=== PATIENT | male | born 1945 | race Caucasian/White ===

== ENCOUNTER 2017-01-05 21:32 | Inpatient (IN) | payer OTHER, MEDICARE ==
[~2017-01-05] VITALS: Ht 185.4 cm; Wt 74.3 kg
[~2017-01-05 21:32] MED LIST changes: -COUMADIN3 MG PO; -LOVENOX80 MG/0.8 SC
[2017-01-05 22:09] LABS: BASE EXCESS 9.4 mEq/L (-3 to +3); BICARBONATE 35.2 mEq/L (22-26); CARBOXY HGB 2.2 % (0-5); COMMENTS - BLOOD GASES A+C+; METHEMOGLOBIN 0.8 % (0-1.5); O2 FLOW 4 L/MIN; PCO2 53 mm Hg (35-45); PO2 72 mm Hg (80-100); SITE RR; pH 7.43 (7.35-7.45)
[2017-01-05 22:10] LABS: DEVICE NC; TOTAL RESP RATE 24 resp/min
[2017-01-05 22:10] LABS: EOSINOPHIL (%) 0.3 % (0-5); HEMATOCRIT 40.5 % (38.0-50.0); IMMATURE GRANULOCYTE (%) 0.5 % (0.0-0.7); IMMATURE GRANULOCYTE COUNT 0.1 K/uL; INSTRUMENT ABS NEUTROPHIL CT 9.6 K/uL; LYMPHOCYTE COUNT 0.2 K/uL (1.0-2.8); MCH 28.8 PG (29.0-34.0); MCHC 31.6 G/DL (30.0-36.0); MEAN PLAT.VOLUME 9.4 uM^3 (9.0-12.4); MONOCYTE (%) 6.4 % (3-12); MONOCYTE COUNT 0.7 K/uL (0-0.8); NEUTROPHIL (%) 90.9 % (45-76); NEUTROPHIL COUNT 9.6 K/uL (1.8-6.4); PLATELET COUNT 366 K/uL (156-360); RBC DIS.WIDTH-CV 15.6 % (11.8-14.6); RBC DIS.WIDTH-SD 52.1 % (39-53); RED BLOOD COUNT 4.45 M/uL (4.00-5.50); WHITE BLOOD COUNT 10.6 K/uL (4.1-10.2)
[2017-01-05 22:22] LABS: INTER. NORMALIZED RATIO 1.7; PROTHROMBIN TIME 19.5 SEC (10.2-12.9)
[2017-01-05 22:23] LABS: CHLORIDE 94 mEq/L (99-109); POTASSIUM 4.9 mEq/L (3.7-5.4); SODIUM 135 mEq/L (136-147)
[2017-01-05 22:24] LABS: MAGNESIUM 1.7 mg/dL (1.3-2.7)
[2017-01-05 22:25] LABS: GLUCOSE 125 mg/dL (70-99); PTT 43.3 SEC (25-37)
[2017-01-05 22:26] LABS: ANION GAP 9 MEQ/L (2-14)
[2017-01-05 22:29] LABS: GFR ESTIMATE (CALCULATED) > 59 mL/min/; UREA NITROGEN (BUN) 14 mg/dL (9-23)
[2017-01-05 22:35] LABS: TROP-I INTERPRETATION NEGATIVE; TROPONIN-I < 0.01 ng/mL (0.0-0.30)
[2017-01-05 22:37] LABS: DIGOXIN 0.4 ng/mL (0.8-2.0)
[2017-01-05] MEDS ORDERED: COUMADIN3 MG PO (23:47)
[2017-01-05] MEDS ORDERED: LOVENOX80 MG/0.8 SC (23:48)
[2017-01-06 02:24] VITALS: BP 116/61
[2017-01-06 04:56] LABS: INTER. NORMALIZED RATIO 1.9; PROTHROMBIN TIME 21.3 SEC (10.2-12.9)
[2017-01-06 05:23] LABS: ANION GAP 5 MEQ/L (2-14); CHLORIDE 98 MEQ/L (99-109); POTASSIUM 4.8 MEQ/L (3.7-5.4); SAMPLE HEMOLYSIS CHECK 0; SAMPLE ICTERIC CHECK 0; SAMPLE LIPEMIA CHECK 0; SODIUM 137 MEQ/L (136-147); TOTAL BILIRUBIN 0.7 MG/DL (0.0-1.0)
[2017-01-06 05:29] LABS: ALKALINE PHOSPHATASE 81 IU/L (3-129); GFR ESTIMATE (CALCULATED) > 59 mL/min/; GLUCOSE 103 mg/dL (70-99); UREA NITROGEN (BUN) 14 mg/dL (9-23)
[2017-01-06 07:45] VITALS: BP 99/66
[2017-01-06 12:03] VITALS: BP 85/50
[2017-01-06 15:47] VITALS: BP 90/53
[2017-01-06 19:45] VITALS: BP 102/68
[2017-01-06 23:21] VITALS: BP 98/62
[2017-01-07 03:21] VITALS: BP 100/52
[2017-01-07 05:16] LABS: HEMATOCRIT 34.5 % (38.0-50.0); MCH 27.9 PG (29.0-34.0); MCHC 30.7 G/DL (30.0-36.0); MCV 90.8 FL (86-99); MEAN PLAT.VOLUME 9.5 uM^3 (9.0-12.4); PLATELET COUNT 304 K/uL (156-360); RBC DIS.WIDTH-CV 15.7 % (11.8-14.6); RBC DIS.WIDTH-SD 52.3 % (39-53); WHITE BLOOD COUNT 4.7 K/uL (4.1-10.2)
[2017-01-07 05:44] LABS: INTER. NORMALIZED RATIO 1.8; PROTHROMBIN TIME 20.4 SEC (10.2-12.9)
[2017-01-07 06:45] LABS: ANION GAP 7 MEQ/L (2-14); CHLORIDE 97 MEQ/L (99-109); GFR ESTIMATE (CALCULATED) > 59 mL/min/; GLUCOSE 79 mg/dL (70-99); POTASSIUM 4.2 MEQ/L (3.7-5.4); SAMPLE HEMOLYSIS CHECK 0; SAMPLE ICTERIC CHECK 0; SAMPLE LIPEMIA CHECK 0; SODIUM 140 MEQ/L (136-147); UREA NITROGEN (BUN) 14 mg/dL (9-23)
[2017-01-07 08:16] VITALS: BP 78/50
[2017-01-07 12:12] VITALS: BP 86/59
[2017-01-07 16:00] VITALS: BP 92/60
[2017-01-07 19:20] VITALS: BP 102/58
[2017-01-08] VITALS (7 sets, daily range): BP systolic 91–111; BP diastolic 56–72
[2017-01-08 05:33] LABS: INTER. NORMALIZED RATIO 1.8; PROTHROMBIN TIME 20.6 SEC (10.2-12.9)
[2017-01-09 03:51] VITALS: BP 119/67
[2017-01-09 04:55] LABS: INTER. NORMALIZED RATIO 2.2; PROTHROMBIN TIME 24.7 SEC (10.2-12.9)
[2017-01-09 07:05] VITALS: BP 96/60
[2017-01-09 10:49] LABS: ALKALINE PHOSPHATASE 69 IU/L (3-129); ANION GAP 4 MEQ/L (2-14); CHLORIDE 96 MEQ/L (99-109); GFR ESTIMATE (CALCULATED) > 59 mL/min/; POTASSIUM 4.4 MEQ/L (3.7-5.4); SAMPLE HEMOLYSIS CHECK 0; SAMPLE ICTERIC CHECK 0; SAMPLE LIPEMIA CHECK 0; SODIUM 138 MEQ/L (136-147); UREA NITROGEN (BUN) 9 mg/dL (9-23)
[2017-01-09 10:50] LABS: GLUCOSE 147 mg/dL (70-99); TOTAL BILIRUBIN 0.4 MG/DL (0.0-1.0)
[2017-01-09 12:01] VITALS: BP 96/64
[2017-01-09 15:38] VITALS: BP 95/63
[2017-01-09 20:32] VITALS: BP 107/75
[2017-01-09 23:00] VITALS: BP 103/62
[2017-01-10 02:10] VITALS: BP 105/60
[2017-01-10 05:40] LABS: INTER. NORMALIZED RATIO 2.7; PROTHROMBIN TIME 31.3 SEC (10.2-12.9)
[2017-01-10 09:00] VITALS: BP 90/55
[2017-01-10 12:26] VITALS: BP 112/76
[2017-01-10 16:05] VITALS: BP 113/81
[2017-01-11 06:15] LABS: INTER. NORMALIZED RATIO 3.2; PROTHROMBIN TIME 36.8 SEC (10.2-12.9)
[2017-01-11 08:33] VITALS: BP 102/74
[2017-01-11 09:00] LABS: HEMATOCRIT 37.3 % (38.0-50.0); MCH 27.9 PG (29.0-34.0); MCHC 29.8 G/DL (30.0-36.0); MCV 93.7 FL (86-99); MEAN PLAT.VOLUME 9.5 uM^3 (9.0-12.4); PLATELET COUNT 322 K/uL (156-360); RBC DIS.WIDTH-CV 14.8 % (11.8-14.6); RBC DIS.WIDTH-SD 51.6 % (39-53); RED BLOOD COUNT 3.98 M/uL (4.00-5.50); WHITE BLOOD COUNT 4.6 K/uL (4.1-10.2)
[2017-01-11 09:40] LABS: ALKALINE PHOSPHATASE 68 IU/L (3-129); ANION GAP ND MEQ/L (2-14); CHLORIDE 96 MEQ/L (99-109); GFR ESTIMATE (CALCULATED) > 59 mL/min/; POTASSIUM 4.6 MEQ/L (3.7-5.4); SAMPLE HEMOLYSIS CHECK 0; SAMPLE ICTERIC CHECK 0; SAMPLE LIPEMIA CHECK 0; SODIUM 142 MEQ/L (136-147); TOTAL BILIRUBIN 0.4 MG/DL (0.0-1.0); UREA NITROGEN (BUN) 8 mg/dL (9-23)
[2017-01-11 09:49] LABS: CARBON DIOXIDE (BICARBONATE) > 40.0 MEQ/L (20-31); GLUCOSE 79 mg/dL (70-99)
[2017-01-11 11:51] VITALS: BP 100/88
[2017-01-11 17:38] VITALS: BP 109/76
[2017-01-11 21:15] VITALS: BP 127/83
[2017-01-11 23:05] VITALS: BP 119/83
[2017-01-12 03:00] VITALS: BP 135/78
[2017-01-12 05:08] LABS: INTER. NORMALIZED RATIO 4.5; PROTHROMBIN TIME 51.4 SEC (10.2-12.9)
[2017-01-12 07:22] VITALS: BP 102/64
[2017-01-12 07:38] VITALS: BP 98/68
[2017-01-12 11:32] VITALS: BP 110/65
[2017-01-12 17:59] VITALS: BP 100/60
[2017-01-12 19:50] VITALS: BP 103/56
[2017-01-13 01:19] VITALS: BP 98/61
[2017-01-13 06:14] LABS: PROTHROMBIN TIME 45.9 SEC (10.2-12.9)
[2017-01-13 07:52] VITALS: BP 102/64
[2017-01-13 10:48] VITALS: BP 98/58
[2017-01-13 17:47] VITALS: BP 110/69
[2017-01-13 19:37] VITALS: BP 100/60
[2017-01-14 06:34] LABS: INTER. NORMALIZED RATIO 3.2; PROTHROMBIN TIME 36.7 SEC (10.2-12.9)
[2017-01-14] MEDS ORDERED: DIGOXIN250 MCG PO (07:36)
[2017-01-14] MEDS ORDERED: LEVOFLOXACIN750 MG PO (07:36)
[2017-01-14 08:08] VITALS: BP 100/64
== END 2017-01-14 12:33 | disposition home health service (06) | DRG 179 ==
LOC: EME 21:32 → 4EAST 01-06 00:34 → EDOF 01-06 00:34 → ENRESERV 01-06 00:59 → 4EAST 01-06 02:03
PROVIDERS: Emergency Medicine; Internal Medicine
DX: J15.1 Pneumonia due to Pseudomonas (principal); J62.8 Pneumoconiosis due to other dust containing silica; I27.20 Pulmonary hypertension, unspecified; I27.81 Cor pulmonale (chronic); I48.2 Chronic atrial fibrillation; I50.810 Right heart failure, unspecified; J43.9 Emphysema, unspecified; I95.9 Hypotension, unspecified; I45.9 Conduction disorder, unspecified; J47.9 Bronchiectasis, uncomplicated; I45.4 Nonspecific intraventricular block; E03.9 Hypothyroidism, unspecified; N40.0 Benign prostatic hyperplasia without lower urinary tract symptoms; R09.02 Hypoxemia; M79.89 Other specified soft tissue disorders; G47.00 Insomnia, unspecified; R41.0 Disorientation, unspecified; R60.0 Localized edema; Z79.01 Long term (current) use of anticoagulants; Z82.3 Family history of stroke; Z82.49 Family history of ischemic heart disease and other diseases of the circulatory system; Z83.3 Family history of diabetes mellitus; Z87.01 Personal history of pneumonia (recurrent)
CPT/HCPCS: 36600; 71010; 71275; 80048; 80053; 80162; 82803; 83605; 83735; 83880; 84443; 84484; 85025; 85027; 85610; 85730; 87040; 87070; 87116; 87205; 87206; 88108; 88305; 90686; 93005; 94640; 94640 76; 94667; 94668; 94799; 99202; 99281; 99285; J0456; J0461; J0692; J0696; J1160; J1650; J1940; J2175; J2250; J2543; J2550; J3010; J3370; J7030; J7050

== ENCOUNTER → 2017-01-05 | Outpatient (CLI) | payer OTHER, MEDICARE ==
[~2017-01-05] VITALS: Ht 182.9 cm; Wt 74.4 kg
[~2017-01-05] MED LIST: ADVAIR 100/501 DISK IH; ADVAIR 250/501 DISK IH; ADVAIR 500/501 DISK IH; ASPIR-LOW81 MG PO; AUGMENTIN875 MG PO; CARDIZEM CD,CA240 M1 PO; CARDIZEM120 MG PO; COUMADIN2 MG PO; COUMADIN3 MG PO; DIGOXIN125 MCG PO; FISH OIL CONC1 EACH PO; FLOMAX0.4 MG PO; FLONASE16 G1 BOTH NARES; FLUTICASONE PRO16 GM BOTH NARES; LANOXIN,DIGIT0.25 MG PO; LANOXIN250 MCG PO; LEVOFLOXACIN750 MG PO; LEVOTHYROXINE100 MCG PO; LOVENOX80 MG/0.8 SC; MUCINEX D ER T1 EACH PO; MUCINEX D1 TABLET PO; OMEGA-31000 M1 PO; ONE DAILY FOR1 EACH PO; PRADAXA150 MG PO; PREDNISONE10 MG PO; PREDNISONE20 MG PO; PROAIR HFA8.5 GM IH; PROVENTIL HFA6.7 GM IH; PROVENTIL17 GM IH; Pradaxa PO; Proventil,Ventolin H IH; SPIRIVA1 INHALATI IH; TAZTIA XT180 M1 PO
[2017-01-05 14:21] LABS: INTER. NORMALIZED RATIO 1.7
[2017-01-05 14:24] LABS: PTT 56.7 SEC (25-37)
[2017-01-05 14:28] LABS: PROTHROMBIN TIME 19.1 SEC (10.2-12.9)
[2017-01-05 14:36] LABS: HEMATOCRIT 40.2 % (38.0-50.0); MCH 28.4 PG (29.0-34.0); MCHC 31.3 G/DL (30.0-36.0); MCV 90.5 FL (86-99); MEAN PLAT.VOLUME 9.3 uM^3 (9.0-12.4); PLATELET COUNT 367 K/uL (156-360); RBC DIS.WIDTH-CV 15.5 % (11.8-14.6); RBC DIS.WIDTH-SD 51.7 % (39-53); RED BLOOD COUNT 4.44 M/uL (4.00-5.50); WHITE BLOOD COUNT 4.8 K/uL (4.1-10.2)
== END | disposition home or self-care (01) ==
LOC: AMB 13:47
PROVIDERS: Internal Medicine Pulmonary Disease
DX: J18.9 Pneumonia, unspecified organism (principal); I48.2 Chronic atrial fibrillation; J44.9 Chronic obstructive pulmonary disease, unspecified; J62.8 Pneumoconiosis due to other dust containing silica; J84.10 Pulmonary fibrosis, unspecified; I27.81 Cor pulmonale (chronic); E03.9 Hypothyroidism, unspecified
CPT/HCPCS: 85027; 85610; 85730; 87070; 87116; 87205; 87206; 88108; 88305; 94640; J0461; J2175; J2250; J2550; J3010

== ENCOUNTER 2017-01-22 21:39 | Emergency (ER) | payer OTHER, MEDICARE ==
[~2017-01-22] VITALS: Ht 185.4 cm; Wt 165.0 kg
[~2017-01-22 21:39] MED LIST changes: +COUMADIN3 MG PO; +DIGOXIN250 MCG PO; +LOVENOX80 MG/0.8 SC
[2017-01-22] MEDS ORDERED: PREDNISONE20 MG PO (22:11)
[2017-01-22 22:34] LABS: EOSINOPHIL (%) 4.9 % (0-5); EOSINOPHIL COUNT 0.3 K/uL (0-0.3); HEMATOCRIT 33.9 % (38.0-50.0); IMMATURE GRANULOCYTE (%) 0.5 % (0.0-0.7); INSTRUMENT ABS NEUTROPHIL CT 4.3 K/uL; LYMPHOCYTE COUNT 0.3 K/uL (1.0-2.8); MCH 28.8 PG (29.0-34.0); MCHC 31.6 G/DL (30.0-36.0); MCV 91.1 FL (86-99); MEAN PLAT.VOLUME 10.4 uM^3 (9.0-12.4); MONOCYTE (%) 19.4 % (3-12); MONOCYTE COUNT 1.2 K/uL (0-0.8); NEUTROPHIL (%) 70.3 % (45-76); NEUTROPHIL COUNT 4.3 K/uL (1.8-6.4); PLATELET COUNT 253 K/uL (156-360); RBC DIS.WIDTH-CV 15.3 % (11.8-14.6); RBC DIS.WIDTH-SD 51.5 % (39-53); RED BLOOD COUNT 3.72 M/uL (4.00-5.50); WHITE BLOOD COUNT 6.1 K/uL (4.1-10.2)
[2017-01-22 22:41] LABS: CHLORIDE 93 mEq/L (99-109); POTASSIUM 4.4 mEq/L (3.7-5.4); SODIUM 138 mEq/L (136-147)
[2017-01-22 22:43] LABS: GLUCOSE 92 mg/dL (70-99)
[2017-01-22 22:45] LABS: ANION GAP 7 MEQ/L (2-14)
[2017-01-22 22:47] LABS: GFR ESTIMATE (CALCULATED) > 59 mL/min/ (58.99-99999)
[2017-01-22 22:48] LABS: UREA NITROGEN (BUN) 15 mg/dL (9-23)
[2017-01-22 23:22] VITALS: BP 118/79
== END 2017-01-22 23:23 | disposition home or self-care (01) ==
LOC: EME 21:39
PROVIDERS: Emergency Medicine
DX: J44.1 Chronic obstructive pulmonary disease with (acute) exacerbation (principal); D64.9 Anemia, unspecified; Z87.442 Personal history of urinary calculi; Z87.01 Personal history of pneumonia (recurrent); Z99.81 Dependence on supplemental oxygen
CPT/HCPCS: 71020; 80048; 85025; 93005; 94640; 99281; 99285; J7512

== ENCOUNTER 2017-07-08 02:42 | Inpatient (IN) | payer OTHER, MEDICARE ==
[~2017-07-08] VITALS: Ht 175.3 cm; Wt 80.5 kg
[2017-07-08 03:00] LABS: HEMATOCRIT 37.7 % (38.0-50.0); MCH 29.4 PG (29.0-34.0); MCHC 31.8 G/DL (30.0-36.0); MCV 92.4 FL (86-99); PLATELET COUNT 319 K/uL (156-360); RBC DIS.WIDTH-CV 14.6 % (11.8-14.6); RBC DIS.WIDTH-SD 49.5 % (39-53); RED BLOOD COUNT 4.08 M/uL (4.00-5.50)
[2017-07-08 03:10] LABS: CHLORIDE 99 mEq/L (99-109); POTASSIUM 4.7 mEq/L (3.7-5.4); SODIUM 139 mEq/L (136-147)
[2017-07-08 03:12] LABS: GLUCOSE 121 mg/dL (70-99)
[2017-07-08 03:16] LABS: CREATININE 0.9 mg/dL (0.6-1.3); GFR ESTIMATE (CALCULATED) > 59 mL/min/ (58.99-99999)
[2017-07-08 03:17] LABS: UREA NITROGEN (BUN) 18 mg/dL (9-23)
[2017-07-08 05:09] LABS: TROP-I INTERPRETATION NEGATIVE; TROPONIN-I < 0.01 ng/mL (0.0-0.30)
[2017-07-08 05:10] LABS: APPEARANCE CLEAR ((CLEAR)); BILIRUBIN NEGATIVE; BLOOD NEGATIVE; COLOR YELLOW ((YELLOW)); GLUCOSE (STRIP) NEGATIVE; KETONES NEGATIVE; LEUKOCYTES NEGATIVE; NITRITE NEGATIVE; PROTEIN (STRIP) 30; UCUL ADDED? NO; UROBILINOGEN 0.2 MG/DL (0.2-1.0)
[2017-07-08 07:45] LABS: INTER. NORMALIZED RATIO 1.3
[2017-07-08] MEDS ORDERED: PROVENTIL,2.5 MG/3 M IH (12:40)
[2017-07-08] MEDS ORDERED: AUGMENTIN875 MG PO (12:41)
[2017-07-08] MEDS ORDERED: TYLENOL EXTRA500 MG PO (12:41)
[2017-07-08] MEDS ORDERED: PREDNISONE1 MG PO ×2 (12:43)
[2017-07-08 14:39] VITALS: BP 112/70
[2017-07-08 17:27] VITALS: BP 110/61
[2017-07-08 20:10] VITALS: BP 112/56
[2017-07-09 00:57] VITALS: BP 120/60
[2017-07-09 05:26] VITALS: BP 106/72
[2017-07-09 05:33] LABS: HEMATOCRIT 33.7 % (38.0-50.0); HEMOGLOBIN 10.4 G/DL (12.5-16.6); MCH 28.7 PG (29.0-34.0); MCHC 30.9 G/DL (30.0-36.0); MCV 92.8 FL (86-99); PLATELET COUNT 274 K/uL (156-360); RBC DIS.WIDTH-CV 14.6 % (11.8-14.6); RBC DIS.WIDTH-SD 50.1 % (39-53); RED BLOOD COUNT 3.63 M/uL (4.00-5.50); WHITE BLOOD COUNT 8.8 K/uL (4.1-10.2)
[2017-07-09 06:07] LABS: CHLORIDE 103 MEQ/L (99-109); CREATININE 0.6 MG/DL (0.6-1.3); GFR ESTIMATE (CALCULATED) > 59 mL/min/ (58.99-99999); GLUCOSE 148 mg/dL (70-99); POTASSIUM 4.2 MEQ/L (3.7-5.4); SODIUM 139 MEQ/L (136-147); UREA NITROGEN (BUN) 11 mg/dL (9-23)
[2017-07-09 07:29] VITALS: BP 121/63
[2017-07-09 12:14] VITALS: BP 100/58
[2017-07-09 15:54] VITALS: BP 106/68
[2017-07-09 20:57] VITALS: BP 120/78
[2017-07-10] VITALS (7 sets, daily range): BP systolic 111–138; BP diastolic 70–84
[2017-07-10 05:54] LABS: CHLORIDE 105 MEQ/L (99-109); CREATININE 0.6 MG/DL (0.6-1.3); GFR ESTIMATE (CALCULATED) > 59 mL/min/ (58.99-99999); GLUCOSE 146 mg/dL (70-99); POTASSIUM 4.4 MEQ/L (3.7-5.4); SODIUM 144 MEQ/L (136-147); UREA NITROGEN (BUN) 16 mg/dL (9-23)
[2017-07-10 06:56] LABS: DIGOXIN 1.1 ng/mL (0.8-2.0)
[2017-07-11 03:30] VITALS: BP 111/68
[2017-07-11 07:26] VITALS: BP 125/76
[2017-07-11 11:27] VITALS: BP 113/70
[2017-07-11 15:50] VITALS: BP 129/62
[2017-07-11 19:46] VITALS: BP 134/67
[2017-07-11 23:23] VITALS: BP 129/70
[2017-07-12] VITALS (7 sets, daily range): BP systolic 124–139; BP diastolic 66–79
[2017-07-13 03:42] VITALS: BP 148/78
[2017-07-13 06:50] VITALS: BP 143/83
[2017-07-13] MEDS ORDERED: BENZONATATE100 MG PO (08:25)
[2017-07-13] MEDS ORDERED: LEVAQUIN750 MG PO (08:26)
[2017-07-13] MEDS ORDERED: PREDNISONE20 MG PO (08:27)
[2017-07-13 10:36] VITALS: BP 128/78
== END 2017-07-13 12:56 | disposition home health service (06) | DRG 867 ==
LOC: EME 02:42 → 4EAST 10:55 → EDOF 10:55 → ENRESERV 11:07 → 4EAST 14:13 → ENRESERV 07-12 00:50 → 5EAST 07-12 01:42 → ENPENDDIS 07-13 → 5EAST 07-13 12:56
PROVIDERS: Emergency Medicine; Internal Medicine; Internal Medicine Cardiovascular Disease
DX: B44.1 Other pulmonary aspergillosis (principal); J96.21 Acute and chronic respiratory failure with hypoxia; J18.9 Pneumonia, unspecified organism; J85.0 Gangrene and necrosis of lung; J44.0 Chronic obstructive pulmonary disease with (acute) lower respiratory infection; J44.1 Chronic obstructive pulmonary disease with (acute) exacerbation; R04.2 Hemoptysis; J62.8 Pneumoconiosis due to other dust containing silica; Z99.81 Dependence on supplemental oxygen; I95.9 Hypotension, unspecified; I27.29 Other secondary pulmonary hypertension; I27.81 Cor pulmonale (chronic); I48.1 Persistent atrial fibrillation; I48.2 Chronic atrial fibrillation; E03.9 Hypothyroidism, unspecified; N40.0 Benign prostatic hyperplasia without lower urinary tract symptoms; I45.10 Unspecified right bundle-branch block; K08.9 Disorder of teeth and supporting structures, unspecified; Z79.01 Long term (current) use of anticoagulants
CPT/HCPCS: 71045; 71046; 71275; 80048; 80162; 80202; 81003; 83605; 83880; 84484; 85027; 85610; 87040; 87070; 87205; 87449; 93005; 94640; 94640 76; 94760; 94799; 99202; 99281; 99285; J0456; J0692; J1160; J1956; J2920; J3370; J7030; J7512